=== PATIENT | female | born 1970 | race Caucasian/White ===

== ENCOUNTER 2021-03-25 15:37 | Outpatient (CLI) | payer OTHER | END 2021-03-25 15:38 | disposition home or self-care (01) | LOC: RAD-FRANK 15:37 | PROVIDERS: ATTEND Nurse Practitioner Family | DX: R06.02 Shortness of breath (principal); R91.8 Other nonspecific abnormal finding of lung field | CPT/HCPCS: 71046 ==

== ENCOUNTER 2023-05-31 08:31 | Outpatient (CLI) | payer OTHER | END 2023-05-31 08:32 | disposition home or self-care (01) | LOC: RAD-FRANK 08:31 | PROVIDERS: ATTEND Nurse Practitioner Family | DX: S92.352A Displaced fracture of fifth metatarsal bone, left foot, initial encounter for closed fracture (principal) ==